=== PATIENT | female | born 1950 | race Caucasian/White ===

== ENCOUNTER 2022-08-01 13:37 | Outpatient (CLI) | payer OTHER, SELFPAY ==
--- NOTE | ~2022-08-01 | XR_ITS ---
EXAMINATION: XR abdomen/kub 1V INDICATION: Calcium kidney stone TECHNIQUE: Supine views of the abdomen were obtained on 2 radiographs. COMPARISON: None FINDINGS: A 5 mm calcification projects in the right upper quadrant near the right L1 transverse proc ess. An ovoid calcification projecting near the left L4 transverse process may reflect an ingested me dication. Phleboliths are noted in the pelvis. There is mild osteoarthritis of the hips. A large volu me of colonic stool is present. IMPRESSION: 1. Indeterminate right upper quadrant calcification, possibly right nephrolithiasis. Correlation with prior imaging is recommended. Reviewed, dictated and finalized at location L. IMPRESSION: 1. Indeterminate right upper quadrant calcification, possibly right nephrolithi asis. Correlation with prior imaging is recommended.
== END 2022-08-01 13:38 | disposition home or self-care (01) ==
LOC: ANHIMG 13:43
PROVIDERS: PCP Internal Medicine; Visit Provider Nurse Practitioner
DX: N20.0 Calculus of kidney (principal)
CPT/HCPCS: 74018